=== PATIENT | male | born 1975 | race Two or more races ===

== ENCOUNTER 2018-10-19 19:26 | Inpatient (IN) | payer SELFPAY ==
[2018-10-19] MEDS ORDERED: SODIUM CHLORIDE 0.9% 1000ML 1,000 ML IV ONE (19:31)
[2018-10-19] MEDS ORDERED: MORPHINE SULFATE 10 MG/ML SOL IV ONE ×2 (19:32→19:50)
[2018-10-19] MEDS ORDERED: ONDANSETRON HCL 4 MG/2 ML SOL IV ONE (19:32)
[2018-10-19] MEDS ORDERED: ONDANSETRON HCL 4 MG/2 ML SOL ONE (19:36)
[2018-10-19] MEDS ORDERED: MORPHINE SULFATE 10 MG/ML SOL ONE ×2 (19:36→19:50)
[2018-10-19 20:04] LABS: ALBUMIN 4.1 gm/dl (3.4-5.0); BILIRUBIN,TOTAL 0.3 mg/dl (0.2-1.0); CALCIUM 8.9 mg/dl (8.5-10.1); CARBON DIOXIDE 28.3 mEq/L (21-32); CREATININE 0.92 mg/dl (0.80-1.30); POTASSIUM 3.4 mMol/L (3.5-5.1); TOTAL PROTEIN 8.1 gm/dl (6.4-8.2)
[2018-10-19] MEDS ORDERED: FENTANYL 25 MCG PATCH TDM TD SCH (20:30)
[2018-10-19] MEDS ORDERED: FENTANYL 100MCG/2ML SOL IV ONE ×2 (20:33→21:10)
[2018-10-19] MEDS ORDERED: FENTANYL 100MCG/2ML SOL ONE ×2 (20:33→23:18)
[2018-10-19] MEDS ORDERED: ONDANSETRON HCL 4 MG/2 ML SOL IV PRN (22:41)
[2018-10-19] MEDS: FENTANYL 100MCG/2ML SOL IV PRN (23:20)
[2018-10-19] MEDS: LACTATED RINGERS with DEXTROSE 1,000 ML IV SCH (23:21)
[2018-10-20] MEDS: FENTANYL 100MCG/2ML SOL IV PRN ×3 (01:15→08:29)
[2018-10-20 06:15] VITALS: RESP 16
[2018-10-20] MEDS: LACTATED RINGERS with DEXTROSE 1,000 ML IV SCH (07:15)
[2018-10-20] MEDS ORDERED: FENTANYL 100MCG/2ML SOL ONE (08:25)
[2018-10-20] MEDS ORDERED: OMEPRAZOLE 20 MG CAPSULE PO SCH (09:00)
[2018-10-20] MEDS ORDERED: AMLODIPINE 5 MG TAB PO SCH (09:00)
[2018-10-20 09:08] VITALS: BP 130/75; PULSE 81; TEMP 98.5; O2SAT 96
[2018-10-20] MEDS ORDERED: HYDROMORPHONE 1 MG/ML SYRINGE IV PRN (09:13)
[2018-10-20 09:17] LABS: CALCIUM 8.2 mg/dl (8.5-10.1); CARBON DIOXIDE 27.2 mEq/L (21-32); CREATININE 0.78 mg/dl (0.80-1.30); POTASSIUM 3.4 mMol/L (3.5-5.1)
[2018-10-20] MEDS ORDERED: PANTOPRAZOLE SODIUM 40 MG ECT PO SCH (09:30)
[2018-10-20] MEDS ORDERED: PATIENT EDUCATION 1 MISC PRN (10:17)
== END 2018-10-20 10:00 | disposition short-term general hospital (02) | DRG 563 ==
LOC: ED 19:26 → OBSVTOIN 22:19 → ACUTE CARE 22:19
PROVIDERS: ADMIT Internal Medicine; ATTEND Internal Medicine
PROC: 0QSJXZZ Reposition Right Fibula, External Approach (ICD-10-PCS; principal; 2018-10-19)
PROC: 2W3SX1Z Immobilization of Right Foot using Splint (ICD-10-PCS; 2018-10-19)
DX: S82.851A Displaced trimalleolar fracture of right lower leg, initial encounter for closed fracture (principal); W00.0XXA Fall on same level due to ice and snow, initial encounter; R40.2362 Coma scale, best motor response, obeys commands, at arrival to emergency department; R40.2142 Coma scale, eyes open, spontaneous, at arrival to emergency department; R40.2252 Coma scale, best verbal response, oriented, at arrival to emergency department; S93.04XA Dislocation of right ankle joint, initial encounter
CPT/HCPCS: 36415; 73590; 73600; 73610; 73620; 80048; 80053; 93005; 94762; 96365; 96374; 96375; 99223; 99285; G0390; J2270; J2405; J3010; A9270-GY; E0114; J1170; J2704